=== PATIENT | female | born 1975 | race Caucasian/White ===

== ENCOUNTER 2021-01-30 12:34 | Outpatient (REF) | payer SELFPAY ==
[2021-02-03 07:14] LABS: Chlamydia Result Negative (Negative); GC Result Negative (Negative)
== END 2021-01-30 12:35 | disposition home or self-care (01) ==
LOC: LBN 12:34
PROVIDERS: Visit Provider Nurse Practitioner Family
DX: Z11.3 Encounter for screening for infections with a predominantly sexual mode of transmission (principal)
CPT/HCPCS: 87491; 87591